=== PATIENT | female | born 1975 | race Two or more races ===

== ENCOUNTER 2018-08-02 07:54 | Emergency (ER) | payer BC ==
[~2018-08-02] VITALS: Ht 160 cm; Wt 72.6 kg
[~2018-08-02 07:54] MED LIST: CEPHALEXIN500 MG ORAL; NKM; ONDANSETRON ODT4 MG ORAL
[2018-08-02 08:15] VITALS: BP 153/83
--- NOTE | 2018-08-02 08:17 | NUR ---
ED Nurse Note: pt walked in the ed with chief complaint of sore throat and cough x 1 week. pt stated she is having 7/10 pain when swallowing. pt verbalized that she took over the counter pain medicine and tried to gargle with warm water with salt but no relief. pt denies fever. will continue to monitor.
--- NOTE | 2018-08-02 08:28 | Emergency Room Report ---
History of Present Illness General Chief Complaint: Sore Throat Source: Patient Present Illness HPI Patient is a 42-year-old female presented after increased sore throat. Patient reports having onset approximately 1 week ago. She reports having worsening sore throat over the past few days. She denies any fever. She states she had fever 1 week ago. Patient had been noted to have a viral infection approximate 1 week prior. She reports having increased pain to both ears. She denies any vomiting or diarrhea. Allergies: Coded Allergies: No Known Allergies (Unverified , 03/17/13) Patient History Past Medical History: see triage record Last Menstrual Period: 3-21 Now: No Reviewed Nursing Documentation: PMH: Agreed; PSxH: Agreed Nursing Documentation-PMH Past Medical History: No History, Except For Hx Neurological Problems: Yes - psoriasis Review of Systems All Other Systems: negative except mentioned in HPI Physical Exam Vital Signs Date Time Temp Pulse Resp B/P (MAP) Pulse Ox O2 Delivery O2 Flow Rate FiO2 08/02/18 08:05 98.4 84 20 153/83 97 Room Air General Appearance: well appearing, no apparent distress, alert, GCS 15 Head: normocephalic, atraumatic ENT: hearing grossly normal, normal voice, tonsillar swelling, tonsillar exudate Neck: full range of motion, supple Respiratory: no respiratory distress, speaking full sentences Cardiovascular #1: normal inspection Gastrointestinal: normal inspection Neurologic: normal inspection, alert, oriented x3, normal gait Psychiatric: normal inspection, mood/affect normal Skin: no rash Medical Decision Making Diagnostic Impression: Primary Impression: Exudative tonsillitis ER Course Patient presented for sore throat. Differential diagnosis included but was not limited to meningitis, exudative tonsillitis, retropharyngeal abscess, epiglottitis, strep pharyngitis. Patient has a benign exam and does not appear to require any further imaging or laboratory testing at this time. Patient appears to have had a viral pharyngitis over this appears to be secondarily bacterial infection. Patient was given prescription fororal antibiotics. Patient did not appear to be dehydrated. Patient was advised to follow-up with primary care physician for recheck. She is to return for any worsening condition or other concerns. Last Vital Signs Date Time Temp Pulse Resp B/P (MAP) Pulse Ox O2 Delivery O2 Flow Rate FiO2 08/02/18 08:15 98.4 84 20 153/83 97 Room Air Status: improved Disposition: HOME, SELF-CARE Condition: Stable Scripts Lidocaine HCl 2% Viscous (Lidocaine HCl 2% Viscous) 100 Ml Solution 15 ML ORAL QID, #100 ML Prov: Braulio Avalos MD 08/02/18 Amoxicillin* (AMOXIL*) 500 Mg Capsule 500 MG ORAL THREE TIMES A DAY, #30 CAP Prov: Braulio Avalos MD 08/02/18 Braulio Avalos MD Aug 02, 2018 08:28
[2018-08-02] MEDS ORDERED: LIDOCAINE VISC100 ML ORAL (08:29)
[2018-08-02] MEDS ORDERED: AMOXICILLIN500 MG ORAL (08:29)
[2018-08-02 08:30] VITALS: BP 153/83
[2018-08-02] MEDS ORDERED: Lidocaine 2% Visc 15ml soln ORAL ONE (08:30)
--- NOTE | 2018-08-02 08:30 | NUR ---
ER DISCHARGE NOTE: Patient is cleared to be discharged per ERMD, pt is aox4, on room air, with stable vital signs. pt was given dc and prescription instructions, pt was able to verbalize understanding, pt id band removed without complications. pt is able to ambulate with steady gait. pt took all belongings.
== END 2018-08-02 08:30 | disposition home or self-care (01) ==
LOC: EMR 08:27
DX: J03.90 Acute tonsillitis, unspecified (principal); L40.9 Psoriasis, unspecified
CPT/HCPCS: 99282